=== PATIENT | female | born 2000 | race Caucasian/White ===

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

== ENCOUNTER 2019-01-07 00:41 | Emergency (ER) | payer OTHER ==
[~2019-01-07] VITALS: Ht 165.1 cm; Wt 54.4 kg
[2019-01-07] MEDS ORDERED: PEPCID40 MG PO (06:44)
[2019-01-07] MEDS ORDERED: ZOFRAN4 MG PO (06:44)
== END 2019-01-07 06:53 | disposition home or self-care (01) ==
LOC: ER 00:41
DX: L50.0 Allergic urticaria (principal); K29.70 Gastritis, unspecified, without bleeding